=== PATIENT | female | born 1985 | race Two or more races ===

== ENCOUNTER 2016-06-01 17:17 | Emergency (ER) | payer SELFPAY ==
[~2016-06-01] VITALS: Ht 165.1 cm; Wt 113.4 kg
[2016-06-01 17:49] LABS: NEG OBC UR NEG; POS OBC UR POS
[2016-06-01 17:51] LABS: BILIRUBIN,URINE NEGATIVE (NEG); GLUCOSE,URINE NEGATIVE (NEG); NITRITE,URINE NEGATIVE (NEG); PROTEIN,URINE NEGATIVE (NEG-TRACE)
[2016-06-01 18:01] LABS: BACTERIA,URINE FEW /HPF (0-FEW); SQUAMOUS EPITHELIAL CELL,UR MOD /LPF
[2016-06-01 18:09] LABS: BASO % 1 % (0-3); EOS % 1 % (0-3); HEMATOCRIT 38.9 % (36.0-47.0); HEMOGLOBIN 13.2 g/dL (12.0-15.5); LYMPH # 1.3 x10^3/uL (1.0-4.8); LYMPH % 17 % (24-48); MEAN CORPUSCULAR HEMOGLOBIN 30 pg (25-35); MEAN CORPUSCULAR HGB CONC 34 g/dL (31-37); MEAN CORPUSCULAR VOLUME 87 fL (79-100); MONO % 9 % (0-9); NEUT % 72 % (31-73); PLATELET COUNT 265 x10^3/uL (140-400); RED BLOOD COUNT 4.48 x10^6/uL (3.50-5.40); RED CELL DISTRIBUTION WIDTH 12.3 % (11.5-14.5); WHITE BLOOD COUNT 7.8 x10^3/uL (4.0-11.0)
--- NOTE | 2016-06-01 19:13 | PHYS DOC ---
Past Medical History Past Medical History: No Pertinent History Past Surgical History: Additional Past Surgical Histo: X 3 Alcohol Use: None Drug Use: None Adult General Chief Complaint Chief Complaint: VAGINAL BLEEDING [facility] This is a 30-year-old female who's had 4 total pregnancies the first 3 with full -term with delivery. Patient states she is now 11 weeks based upon last menstrual period and is having lower abdominal pain with cramping and spotting that was noted today. She reports her pain is very mild and intermittent and rated 6/10 on the pain scale. She denies any nausea/ vomiting. She denies any fever. Review of Systems Review of Systems Constitutional: Denies fever or chills [] Eyes: Denies change in visual acuity, redness, or eye pain [] HENT: Denies nasal congestion or sore throat [] Respiratory: Denies cough or shortness of breath [] Cardiovascular: No additional information not addressed in [facility] [] GI: Denies abdominal pain, nausea, vomiting, bloody stools or diarrhea [] : Denies dysuria or hematuria [] Musculoskeletal: Denies back pain or joint pain [] Integument: Denies rash or skin lesions [] Neurologic: Denies headache, focal weakness or sensory changes [] Endocrine: Denies polyuria or polydipsia [] Allergies Allergies Allergies Coded Allergies Type Severity Reaction Last Updated Verified No Known Drug Allergies 06/01/16 No Physical Exam Physical Exam Constitutional: Well developed, well nourished, no acute distress, non-toxic appearance. [] HENT: Normocephalic, atraumatic, bilateral external ears normal, oropharynx moist, no oral exudates, nose normal. [] Eyes: PERRLA, EOMI, conjunctiva normal, no discharge. [] Neck: Normal range of motion, no tenderness, supple, no stridor. [] Cardiovascular:Heart rate regular rhythm, no murmur [] Lungs & Thorax: Bilateral breath sounds clear to auscultation [] Abdomen: Bowel sounds normal, soft, no tenderness, no masses, no pulsatile masses. [] Skin: Warm, dry, no erythema, no rash. [] Back: No tenderness, no CVA tenderness. [] Extremities: No tenderness, no cyanosis, no clubbing, ROM intact, no edema. [] Neurologic: Alert and oriented X 3, normal motor function, normal sensory function, no focal deficits noted. [] Psychologic: Affect normal, judgement normal, mood normal. [] Current Patient Data Vital Signs Vital Signs Date Time Temp Pulse Resp B/P Pulse Ox O2 Delivery O2 Flow Rate FiO2 06/01/16 17:35 98.2 88 16 159/72 100 Room Air 98.2 Lab Values Laboratory Tests Test 06/01/16 17:25 06/01/16 17:55 Urine Collection Type Unknown Urine Color Yellow Urine Clarity Cloudy Urine pH 6.0 Urine Specific [place] 1.020 Urine Protein Negativemg/dL (NEG-TRACE) Urine Glucose (UA) Negativemg/dL (NEG) Urine Ketones (Stick) Negativemg/dL (NEG) Urine Blood Large (NEG) Urine Nitrite Negative (NEG) Urine Bilirubin Negative (NEG) Urine Urobilinogen Dipstick 1.0mg/dL (0.2 mg/dL) Urine Leukocyte Esterase Moderate (NEG) Urine RBC 3-5/HPF (0-2) Urine WBC 5-10/HPF (0-4) Urine Squamous Epithelial Cells Mod/LPF Urine Bacteria Few/HPF (0-FEW) Urine Mucus Marked/LPF Urine Test Positive (NEG) White Blood Count 7.8x10^3/uL (4.0-11.0) Red Blood Count 4.48x10^6/uL (3.50-5.40) Hemoglobin 13.2g/dL (12.0-15.5) Hematocrit 38.9% (36.0-47.0) Mean Corpuscular Volume 87fL (79-100) Mean Corpuscular Hemoglobin 30pg (25-35) Mean Corpuscular Hemoglobin Concent 34g/dL (31-37) Red Cell Distribution Width 12.3% (11.5-14.5) Platelet Count 265x10^3/uL (140-400) Neutrophils (%) (Auto) 72% (31-73) Lymphocytes (%) (Auto) 17% (24-48) L Monocytes (%) (Auto) 9% (0-9) Eosinophils (%) (Auto) 1% (0-3) Basophils (%) (Auto) 1% (0-3) Neutrophils # (Auto) 5.7x10^3uL (1.8-7.7) Lymphocytes # (Auto) 1.3x10^3/uL (1.0-4.8) Monocytes # (Auto) 0.7x10^3/uL (0.0-1.1) Eosinophils # (Auto) 0.1x10^3/uL (0.0-0.7) Basophils # (Auto) 0.0x10^3/uL (0.0-0.2) Maternal Serum HCG Beta Subunit [id number]/mL (0-6) H Laboratory Tests 06/01/16 17:55 EKG EKG [] Radiology/Procedures Radiology/Procedures [] Course & Med Decision Making Course & Med Decision Making Pertinent Labs and Imaging studies reviewed. (See chart for details) 30-year-old female who has had ongoing vaginal bleeding with lower abdominal pain. Transvaginal OB ultrasound was negative for any abnormality. It showed a viable IUP at an estimated gestational age by ultrasound of 11 weeks 4 days. Pelvic exam reveals a closed cervical os with only a mild amount of bleeding. I counseled her at length that this is a threatened miscarriage at this time and she will need to follow up closely with an OB doctor next several days to have her blood work redrawn. Follow up instructions were provided. She also inquired about her ongoing nasal congestion for which I recommended Tylenol and nasal spray. Her laboratory workup was otherwise unrevealing. She was discharged without incident. Dragon Disclaimer Dragon Disclaimer This electronic medical record was generated, in whole or in part, using a voice recognition dictation system. Departure Departure Impression: Primary Impression: Threatened Disposition: 01 HOME, SELF-CARE Condition: STABLE Referrals: NO PCP (PCP) LAILA MCCORD Jr, MD Patient Instructions: Threatened Miscarriage, [id number] Additional Instructions: Please follow up with the OB doctor in the next 2-3 days for your . Return to the ER if you develop any worsening of your symptoms such as worsening bleeding, pain, or trouble breathing. KALIN FLOYD DO Jun 01, 2016 19:13
--- NOTE | 2016-06-01 20:36 | RAD ---
PROCEDURE Ob ultrasound less than 14 weeks to include transabdominal and transvaginal imaging 06/01/2016 HISTORY First trimester with vaginal bleeding and pelvic pain for 1 day. TECHNIQUE Using the distended urinary bladder as a sonographic window, a real-time ultrasound examination of the pelvis was performed. Additionally in an attempt to better evaluate the uterus and adnexa, a transvaginal ultrasound study was performed. Multiple images were obtained. FINDINGS A gestational sac is seen within the endometrial canal in the region of the fundus of the uterus. Within this gestational sac a pole is seen. The CRL of this pole measures 4.82 centimeters. This corresponds to an estimated gestational age by ultrasound of 11 weeks 4 days plus or minus a standard deviation 7 days. cardiac activity is seen with a heart rate of 168 beats per minute. The maternal cervix is closed. It measures 4.6 centimeters in length. Both ovaries are within normal limits in size and echogenicity. The right ovary measures 4.4 x 2.3 x 2.8 centimeters in size. The left ovary measures 2.7 x 4.4 x 2.4 centimeters in size. No adnexal mass is seen. No free fluid is noted. IMPRESSION Single living IUP with an estimated gestational age by ultrasound of 11 weeks 4 days plus or minus a standard deviation of 7 days. The estimated date of delivery by ultrasound is 12/17/2016. Electronically signed by: Byron Scott MD (Jun 01, 2016 20:34:27)
[2016-06-01 21:00] VITALS: BP 108/54
== END 2016-06-01 21:45 | disposition home or self-care (01) ==
LOC: ER 17:17
DX: O20.0 Threatened abortion (principal); Z3A.11 11 weeks gestation of pregnancy
CPT/HCPCS: 36415; 76801; 76817; 81001; 81025; 84702; 85027; 86900; 86901; 87086; 99285-25